=== PATIENT | female | born 1985 | race Two or more races ===

== ENCOUNTER 2017-10-18 23:07 | Emergency (ER) | payer BC, OTHER ==
[2017-10-18] MEDS ORDERED: cefTRIAXone 1,000 MG in Lidocaine 1% 4 ML IM ONE (23:36)
--- NOTE | 2017-10-18 23:40 | EDM.PDOC ---
ED HPI GENERAL MEDICAL PROBLEM - General Chief Complaint: Skin Complaint Stated Complaint: RIGHT SIDE OF FACE SWOLLEN AND PAINFUL Time Seen by Provider: 10/18/17 23:36 Source of Information: Reports: Patient - History of Present Illness INITIAL COMMENTS - FREE TEXT/NARRATIVE: HISTORY AND PHYSICAL: History of present illness: [ ]Patient presents with some swelling and redness right cheek adjacent to the mandible is tender and swollen no redness no head there is some induration I do not appreciate any fluctuance at this time of lesion is approximately the size of a quarter or a little smaller no fever nausea vomiting chills sweats although patient does complain of tenderness and rates pain 5 out of 10 Review of systems: As per history of present illness and below otherwise all systems reviewed and negative. Past medical history: As per history of present illness and as reviewed below otherwise noncontributory. Surgical history: As per history of present illness and as reviewed below otherwise noncontributory. Social history: No reported history of drug or alcohol abuse. Family history: As per history of present illness and as reviewed below otherwise noncontributory. Physical exam: HEENT: Atraumatic, normocephalic, pupils reactive, negative for conjunctival pallor or scleral icterus, mucous membranes moist, throat clear, neck supple, nontender, trachea midline. Lungs: Clear to auscultation, breath sounds equal bilaterally, chest nontender. Heart: S1S2, regular, negative for clicks, rubs, or JVD. Abdomen: Soft, nondistended, nontender. Negative for masses or hepatosplenomegaly. Negative for costovertebral tenderness. Pelvis: Stable nontender. Genitourinary: Deferred. Rectal: Deferred. Extremities: Atraumatic, negative for cords or calf pain. Neurovascular unremarkable. Neuro: Awake, alert, oriented. Cranial nerves II through XII unremarkable. Cerebellum unremarkable. Motor and sensory unremarkable throughout. Exam nonfocal. Skin as per history of present illness Diagnostics: []Clinical Therapeutics: []Warm compress 1 g Rocephin IM Bactrim double strength Impression: [Cellulitis ] Definitive disposition and diagnosis as appropriate pending reevaluation and review of above. Right Face Pain Score (Numeric/FACES): 7 - Related Data Allergies Allergy/AdvReac Type Severity Reaction Status Date / Time No Known Allergies Allergy Verified 10/18/17 23:31 Home Meds: Home Meds . [No Known Home Meds] 10/18/17 [History] Past Medical History Other OB/BYN History: polycystic ovarian cyst Psychiatric History: Reports: Depression Social & Family History - Family History Family Medical History: Noncontributory - Tobacco Use Smoking Status *Q: Never Smoker - Caffeine Use Caffeine Use: Reports: Coffee - Recreational Drug Use Recreational Drug Use: No ED ROS GENERAL - Review of Systems Review Of Systems: See Below ED EXAM, SKIN/RASH Exam: See Below Course - Vital Signs Last Recorded V/S: Last Vital Signs Temp 98.9 F 10/18/17 23:29 Pulse 96 10/18/17 23:29 Resp 18 10/18/17 23:29 BP 171/81 H 10/18/17 23:29 Pulse Ox 98 10/18/17 23:29 - Orders/Labs/Meds Orders: Active Orders 24 hr Category Date Time Status cefTRIAXone [Rocephin] 1,000 mg Med 10/18/17 23:36 Ordered Lidocaine 1% [Xylocaine-MPF 1%] 4 ml IM ONETIME Departure - Departure Time of Disposition: 23:39 Disposition: Home, Self-Care 01 Condition: Good Clinical Impression: Cellulitis - Discharge Information Referrals: PCP,None [Primary Care Provider] - Additional Instructions: Warm compresses to promote drainage should this occur Medication as prescribed Return if symptoms persist or worsen despite treatment Follow-up with primary care in one week sooner as needed [facility] [address] [place], [place] [id number] The following information is given to patients seen in the emergency department who are being discharged to home. This information is to outline your options for follow-up care. We provide all patients seen in our emergency department with a follow-up referral. The need for follow-up, as well as the timing and circumstances, are variable depending upon the specifics of your emergency department visit. If you don't have a primary care physician on staff, we will provide you with a referral. We always advise you to contact your personal physician following an emergency department visit to inform them of the circumstance of the visit and for follow-up with them and/or the need for any referrals to a consulting specialist. The emergency department will also refer you to a specialist when appropriate. This referral assures that you have the opportunity for follow-up care with a specialist. All of these measure are taken in an effort to provide you with optimal care, which includes your follow-up. Under all circumstances we always encourage you to contact your private physician who remains a resource for coordinating your care. When calling for follow-up care, please make the office aware that this follow-up is from your recent emergency room visit. If for any reason you are refused follow-up, please contact the emergency department at and asked to speak to the emergency department charge nurse. - My Orders Last 24 Hours: My Active Orders 10/18/17 23:36 cefTRIAXone [Rocephin] 1,000 mg Lidocaine 1% [Xylocaine-MPF 1%] 4 ml IM ONETIME - Assessment/Plan Last 24 Hours: My Active Orders 10/18/17 23:36 cefTRIAXone [Rocephin] 1,000 mg Lidocaine 1% [Xylocaine-MPF 1%] 4 ml IM ONETIME
[2017-10-19] MEDS ORDERED: Ketorolac 60 MG/2 ML SDV IM ONE (00:24)
[2017-10-19 01:58] VITALS: BP 140/92
== END 2017-10-19 00:45 | disposition home or self-care (01) ==
LOC: MW.ED 23:07
DX: L03.211 Cellulitis of face (principal); F32.9 Major depressive disorder, single episode, unspecified
CPT/HCPCS: 96372; 99282; J0696; J1885; J2001; 99283

== ENCOUNTER 2017-10-21 16:29 | Emergency (ER) | payer OTHER ==
--- NOTE | 2017-10-21 16:48 | EDM.PDOC ---
ED HPI GENERAL MEDICAL PROBLEM - General Chief Complaint: Skin Complaint Stated Complaint: RIGHT SIDE OF FACE SWOLLEN AND PAINFUL Time Seen by Provider: 10/21/17 17:23 Source of Information: Reports: Patient History Limitations: Reports: No Limitations - History of Present Illness INITIAL COMMENTS - FREE TEXT/NARRATIVE: HISTORY AND PHYSICAL: History of present illness: 32-year-old female patient presenting to the ER today for complaints of a facial abscess. Patient states the abscess developed on Sunday this week, in which she came to the ER on and received a prescription for Bactrim DS by mouth twice a day. Patient states the antibiotics have not been working and the cyst continues to grow in size. Patient states she has been unable to chew or eat food the last 2 days as a result of the pain. Patient denies fever, chills, shortness of breath, chest pain. Review of systems: As per history of present illness and below otherwise all systems reviewed and negative. Past medical history: As per history of present illness and as reviewed below otherwise noncontributory. Surgical history: As per history of present illness and as reviewed below otherwise noncontributory. Social history: No reported history of drug or alcohol abuse. Family history: As per history of present illness and as reviewed below otherwise noncontributory. Physical exam: General: Well-appearing female who is tearful upon exam. Appears to be a reliable historian. Nontoxic appearing and in no acute distress. HEENT: Large golf ball size cyst noted to the right mandible with small pinpoint marking at the inferior border of the cyst where the patient was squeezing out some drainage from the cyst. Cyst is is very tender to light palpation and has surrounding erythema. No drainage noted from the cyst at this time. Oropharynx is clear and nonobstructed. pupils equal and reactive bilaterally, negative for conjunctival pallor or scleral icterus, mucous membranes moist, no lymphadenopathy, trachea midline. No drooling or trismus noted. No meningeal signs. No temporal or mastoid tenderness with palpation. Lungs: Clear to auscultation, breath sounds equal bilaterally, chest nontender. Heart: S1S2, distant, regular rate and rhythm without overt murmur Abdomen: Soft, nondistended, nontender. Genitourinary: Deferred. Rectal: Deferred. Skin: See hEENT above. Extremities: Atraumatic, negative for cords or calf pain. Neurovascular unremarkable. Neuro: Awake, alert, oriented. Cranial nerves II through XII unremarkable. Cerebellum unremarkable. Motor and sensory unremarkable throughout. Exam nonfocal. Notes: At this time I will obtain a CT of the area as I want to make sure there is no tunneling or osteomyelitis. Patient is agreeable. We'll give her Toradol IM as she is driving herself home. CT shows 2 cm oval soft tissue subcutaneous fat with skin thickening and inflammatory stranding. His are nonspecific findings. There is no evidence of an abscess. Suggesting correlating with cellulitis. I did inform the patient of these results. We'll have her continue her antibiotic prescription, a new script for pain medication (Norfolk #20) has been provided for her. We discussed following up with Dr Mclean on Sunday for further evaluation and management. She is agreeable to plan of care and denies any further questions at this time Diagnostics: CT maxillofacial Therapeutics: Toradol IM Impression: Cellulitis Plan: 1. Continue taking your prescribed antibiotics as directed. 2. Tylenol and/or ibuprofen as needed for pain. [place] has been prescribed for moderate to severe pain. Do not take this medication while driving or needing to be functioning outside of the house as it will cause drowsiness. 3. As we discussed please call Dr. Mclean (plastic surgeon) office tomorrow to arrange a follow-up appointment. Return to the ED as needed and as discussed. Definitive disposition and diagnosis as appropriate pending reevaluation and review of above. Face Pain Score (Numeric/FACES): 5 - Related Data Allergies Allergy/AdvReac Type Severity Reaction Status Date / Time No Known Allergies Allergy Verified 10/18/17 23:31 Home Meds: Home Meds . [No Known Home Meds] 10/18/17 [History] Past Medical History - Past Health History Medical/Surgical History: Denies Medical/Surgical History Other OB/BYN History: polycystic ovarian cyst Psychiatric History: Reports: Depression Social & Family History - Family History Family Medical History: Noncontributory - Tobacco Use Smoking Status *Q: Never Smoker - Caffeine Use Caffeine Use: Reports: Coffee ED ROS GENERAL - Review of Systems Review Of Systems: ROS reveals no pertinent complaints other than HPI. ED EXAM, SKIN/RASH Exam: See Below (See dictation) Course - Vital Signs Last Recorded V/S: Last Vital Signs Temp 96.8 F 10/21/17 19:31 Pulse 72 10/21/17 19:31 Resp 18 10/21/17 19:31 BP 158/103 H 10/21/17 19:31 Pulse Ox 100 10/21/17 19:31 - Orders/Labs/Meds Orders: Active Orders 24 hr Category Date Time Status Soft Tissue Neck w Cont [CT] Stat Exams 10/21/17 17:01 Taken HCG QUALITATIVE,URINE [URCHEM] Stat Lab 10/21/17 17:52 Ordered Labs: Laboratory Tests 10/21/17 Range/Units 17:52 Urine HCG, Qual NEGATIVE (NEGATIVE) Meds: Medications Discontinued Medications Generic Name Dose Route Start Last Admin Trade Name Freq PRN Reason Stop Dose Admin Iopamidol 75 ml 10/21/17 19:10 10/21/17 19:11 Isovue Multipack-370 (76%) IVPUSH 10/21/17 19:11 75 ml ONETIME STA Administration Ketorolac Tromethamine Confirm 10/21/17 17:22 10/21/17 17:24 Toradol Administered 10/21/17 17:23 Not Given Dose 60 mg .ROUTE .STK-MED ONE Ketorolac Tromethamine 60 mg 10/21/17 17:23 10/21/17 17:24 Toradol IM 10/21/17 17:24 60 mg ONETIME ONE Administration Departure - Departure Time of Disposition: 19:58 Disposition: Home, Self-Care 01 Clinical Impression: Cellulitis Qualifiers: Site of cellulitis: face Qualified Code(s): L03.211 - Cellulitis of face - Discharge Information Referrals: PCP,None [Primary Care Provider] - Forms: ED Department Discharge Additional Instructions: The following information is given to patients seen in the emergency department who are being discharged to home. This information is to outline your options for follow-up care. We provide all patients seen in our emergency department with a follow-up referral. The need for follow-up, as well as the timing and circumstances, are variable depending upon the specifics of your emergency department visit. If you don't have a primary care physician on staff, we will provide you with a referral. We always advise you to contact your personal physician following an emergency department visit to inform them of the circumstance of the visit and for follow-up with them and/or the need for any referrals to a consulting specialist. The emergency department will also refer you to a specialist when appropriate. This referral assures that you have the opportunity for follow-up care with a specialist. All of these measure are taken in an effort to provide you with optimal care, which includes your follow-up. Under all circumstances we always encourage you to contact your private physician who remains a resource for coordinating your care. When calling for follow-up care, please make the office aware that this follow-up is from your recent emergency room visit. If for any reason you are refused follow-up, please contact the [facility] Emergency Department at and asked to speak to the emergency department charge nurse. [facility] [address] [place] [id number] [facility] Professional Building [address] [place] [address], [address] [place] [address] 1. Continue taking your prescribed antibiotics as directed. 2. Tylenol and/or ibuprofen as needed for pain. [place] has been prescribed for moderate to severe pain. Do not take this medication while driving or needing to be functioning outside of the house as it will cause drowsiness. 3. As we discussed please call Dr. Mclean (plastic surgeon) office tomorrow to arrange a follow-up appointment. Return to the ED as needed and as discussed. - My Orders Last 24 Hours: My Active Orders 10/21/17 17:01 Soft Tissue Neck w Cont [CT] Stat 10/21/17 17:52 HCG QUALITATIVE,URINE [URCHEM] Stat - Assessment/Plan Last 24 Hours: My Active Orders 10/21/17 17:01 Soft Tissue Neck w Cont [CT] Stat 10/21/17 17:52 HCG QUALITATIVE,URINE [URCHEM] Stat
[2017-10-21] MEDS ORDERED: Ketorolac 60 MG/2 ML SDV ONE (17:22)
[2017-10-21] MEDS ORDERED: Ketorolac 60 MG/2 ML SDV IM ONE (17:23)
[2017-10-21] MEDS ORDERED: Iopamidol 755 MG/ML 500 ML Multipack Bottle IVPUSH STA (19:10)
[2017-10-21 20:24] VITALS: BP 184/119
--- NOTE | 2017-10-22 16:13 | CT ---
EXAM DATE: 10/21/17 PATIENT'S AGE: 32 Patient: DAFNE FERGUSON Facility: [place], [place] Site . Site : 1985 Study: CT ST Neck [id number] 7:20:34 PM Ordering Physician: Doctor Antonio Final Report: INDICATION: Right jaw swelling TECHNIQUE: CT soft tissue of the neck was acquired with IV contrast. 75 cc Isovue 370 COMPARISON: None FINDINGS: Skull base: Unremarkable. Pharynx: Unremarkable. Larynx and trachea: Unremarkable. Salivary glands: Unremarkable. Thyroid gland: Unremarkable. Vessels: Unremarkable for age. Bones: Unremarkable for age. Misc: 2.0 centimeter oval soft tissue density in the subcutaneous fat adjacent to the right mandibular angle with adjacent skin thickening and inflammatory stranding. Finding are nonspecific. Subcentimeter bilateral neck adenopathy. Lung apices: Unremarkable. IMPRESSION: 2.0 centimeter oval soft tissue density subcutaneous fat adjacent to the right submandibular the ankle with adjacent skin thickening and inflammatory stranding. Findings are nonspecific. No evidence for abscess. Correlate with focal cellulitis. Dictated by Jesus Montaño MD @ 10/21/2017 7:50:08 PM Dictated by: Jesus Montaño MD @ 10/21/2017 19:50:14 (Electronic Signature) Report Signed by Proxy. KIM
== END 2017-10-21 20:20 | disposition home or self-care (01) ==
LOC: MW.ED 16:29
DX: L03.211 Cellulitis of face (principal)
CPT/HCPCS: 70491; 81025; 96372; 99283; J1885; Q9967